=== PATIENT | female | born 1945 | race Caucasian/White ===

== ENCOUNTER → 2018-09-24 | Outpatient (CLI) | payer MEDICARE, OTHER ==
--- NOTE | 2018-10-05 14:17 | SLEEPHOME ---
DATE OF STUDY: 09/24/2018 ORDERED BY: Dr. Romero Diagnostic home sleep testing was performed due to concern for the obstructive sleep apnea syndrome in this patient with a history of excessive somnolence and gasping in sleep, who has comorbidities of obstructive lung disease and kyphoscoliosis. For testing, a nocturnal T3 respiratory monitoring device was used. Continuous record was made of pulse, oxygen saturation, airflow, chest and abdominal strain, and body position. 9 hours and 59 minutes of data were reviewed. There were only 4 hours and 50 minutes marked as time in bed. During the interval marked time in bed, there were 18 respiratory events identified of 10 seconds in duration or greater for respiratory event index of 3 7. The events that were seen were primarily obstructive. Baseline pulse rate 74 beats per minute, pulse rate ranged 51-87. Baseline saturation was 91% saturation. Saturations fell to 73% with an oxygen desaturation index of 2.5. Testing was performed in both the supine and nonsupine positions. IMPRESSION: Abnormal home sleep testing with repetitive respiratory events and oxygen desaturations to 73% with a respiratory event index of 3.7 is suggestive of the obstructive sleep apnea syndrome. RECOMMENDATIONS: Though the frequency of events was relatively low, oxygen desaturations were significant and time in bed was limited. As home sleep testing tends to underestimate the severity of disease, referral for formal sleep evaluation and consideration of in-laboratory nocturnal polysomnography for definitive diagnosis may with to be considered.
== END ==
LOC: M SLEEP HO 12:34
PROVIDERS: ATTEND Internal Medicine Pulmonary Disease
DX: G47.30 Sleep apnea, unspecified (principal)

== ENCOUNTER → 2019-02-17 | Outpatient (CLI) | payer MEDICARE ==
[2019-02-17 14:19] LABS: ABG BASE EXCESS 4.3 (-2.0-2.0); ABG HCO3 29.2 MEQ/L (22.0-26.0); ABG MODE OF VENT V; ABG O2 SATURATION 96.4 % (95.0-99.0); ABG PARTIAL PRESSURE CO2 44.6 mmHg (35.0-45.0); ABG PARTIAL PRESSURE O2 81.5 mmHg (75.0-100.0); ABG STANDARD HCO3 28.3 MEQ/L (22.0-26.0); ABG TOTAL CO2 30.6 MEQ/L (23.0-31.0); ABG pH (ARTERIAL) 7.434 UNITS (7.350-7.450)
== END ==
LOC: M LAB 13:48
PROVIDERS: ATTEND Internal Medicine Pulmonary Disease
DX: J96.12 Chronic respiratory failure with hypercapnia (principal)